=== PATIENT | female | born 1965 | race Caucasian/White ===

== ENCOUNTER 2016-03-23 12:55 | Emergency (ER) | payer BC, OTHER ==
[2016-03-23] MEDS ORDERED: Aspirin Low Dose CHEW TAB* 81 MG PO ONE (13:33)
[2016-03-23 13:44] LABS: Hematocrit 43 % (35-47); Hemoglobin 14.6 g/dl (12.0-16.0); Mean Corpuscular HGB Conc 34 g/dl (31-36); Mean Corpuscular Hemoglobin 32 pg (27-31); Mean Corpuscular Volume 94 fL (80-97); Mean Platelet Volume 10 um3 (7.4-10.4); Red Blood Count 4.62 10^6/ul (4.0-5.4); Red Cell Distribution Width 13 % (10.5-15); White Blood Count 10.8 10^3/ul (3.5-10.8)
[2016-03-23 13:48] LABS: Urine Bacteria 1+ (Absent); Urine Bilirubin Negative (Negative); Urine Glucose Negative (Negative); Urine Nitrite Negative (Negative)
[2016-03-23 14:05] LABS: Albumin 4.4 g/dL (3.2-5.2); BUN/Creatinine Ratio 12.8 (8-20); Calcium 9.9 mg/dL (8.6-10.3); EGFR African American 89.8 (>60); EGFR Non-African American 69.8 (>60); Globulin 2.6 g/dL (2-4); Magnesium 1.9 mg/dL (1.9-2.7); Potassium 3.9 mmol/L (3.5-5.0); Total Bilirubin 0.7 mg/dL (0.2-1.0)
--- NOTE | 2016-03-23 14:09 | RAD ---
HISTORY: Chest pain COMPARISONS: None VIEWS: 2: Frontal dual-energy and lateral views of the chest. FINDINGS: CARDIOMEDIASTINAL SILHOUETTE: The cardiomediastinal silhouette is normal. JOSSIE: The jossie are normal. PLEURA: The costophrenic angles are sharp. No pleural abnormalities are noted. LUNG PARENCHYMA: The lungs are clear. ABDOMEN: The upper abdomen is clear. There is no subphrenic gas. BONES AND SOFT TISSUES: No bone or soft tissue abnormalities are noted. OTHER: None. IMPRESSION: NO ACTIVE CARDIOPULMONARY DISEASE.
[2016-03-23 14:14] LABS: T4 9.13 g/dL (6.09-12.23)
[2016-03-23 14:15] LABS: TSH (Thyroid Stimulating Horm) 0.52 mcIU/mL (0.34-5.60)
[2016-03-23] MEDS ORDERED: Ketorolac INJ* 30 MG/ML 1 ML VIAL IV PUSH ONE (16:43)
--- NOTE | 2016-03-23 16:47 | ED ---
Cristian Craft Anna, scribed for Aidan Phoenix MD on 03/23/16 at 1343 . HPI Chest Pain - HPI Summary HPI Summary: Patient is a 50 y/o female coming to [facility] presenting with mid-sternal chest pain that began at 0500 this morning. She describes it as an ache with a severity of pain as 8/10. The pain radiates to her right shoulders with deep breaths. The pain is exacerbated by deep breaths and lying down. She says it feels as if there is something caught in her throat, but she has not eaten today. Denies nausea, emesis, SOB, dizziness, leg edema. - History of Current Complaint Chief Complaint: EDChestPainROMI Time Seen by Provider: 03/23/16 13:32 Hx Obtained From: Patient Onset/Duration: Started Hours Ago Timing: Constant Initial Severity: Moderate Current Severity: Moderate Pain Intensity: 8 Pain Scale Used: 0-10 Numeric - Allergy/Home Medications Allergies/Adverse Reactions: Allergies Allergy/AdvReac Type Severity Reaction Status Date / Time No Known Allergies Allergy Verified 03/23/16 13:04 Home Medications: Home Medications Lisinopril TAB* [Prinivil TAB 10 MG*] 20 mg PO DAILY 03/23/16 [History Confirmed 03/23/16] PMH/Surg Hx/FS Hx/Imm Hx Endocrine/Hematology History: Reports: Hx Thyroid Disease - hypothyroidism Denies: Hx Diabetes Cardiovascular History: Reports: Hx Hypertension - Has been on HTN medication since beginning of 2016 Respiratory History: Denies: Hx Asthma, Hx Chronic Obstructive Pulmonary Disease (COPD) GI History: Denies: Hx Ulcer - Surgical History Surgery Procedure, Year, and Place: HYSTERECTOMY 11/17. [facility] LEFT FOOT Infectious Disease History: No Infectious Disease History: Denies: Hx Hepatitis, Hx Human Immunodeficiency Virus (HIV), Traveled Outside the [place] in Last 30 Days - Family History Known Family History: Positive: Cardiac Disease - Father, uncle and Grandfather Hx AAA; Mother Hx leaky heart valve - Social History Lives: With Family Alcohol Use: Daily Alcohol Amount: 4-5 beers per day Substance Use Type: Reports: None Smoking Status (MU): Never Smoked Tobacco Review of Systems Positive: Chest Pain Negative: Shortness Of Breath Negative: Vomiting, Nausea Negative: Edema Neurological: Other - Denies dizziness All Other Systems Reviewed And Are Negative: Yes Physical Exam - Summary Physical Exam Summary: VITAL SIGNS: Reviewed. GENERAL: Patient is an overweight female who is lying comfortable in the stretcher. Patient is not in any acute respiratory distress. HEAD AND FACE: No signs of trauma. No ecchymosis, hematomas or skull depressions. No sinus tenderness. EYES: PERRLA, EOMI x 2, No injected conjunctiva, no nystagmus. EARS: Hearing grossly intact. Ear canals and tympanic membranes are within normal limits. MOUTH: Oropharynx within normal limits. NECK: Supple, trachea is midline, no adenopathy, no JVD, no carotid bruit, no c- spine tenderness, neck with full ROM. CHEST: Symmetric, no tenderness at palpation LUNGS: Clear to auscultation bilaterally. No wheezing or crackles. CVS: Regular rate and rhythm, S1 and S2 present, no murmurs or gallops appreciated. ABDOMEN: Soft, non-tender. No signs of distention. No rebound no guarding, and no masses palpated. Bowel sounds are normal. EXTREMITIES: FROM in all major joints, no edema, no cyanosis or clubbing. NEURO: Alert and oriented x 3. No acute neurological deficits. Speech is normal and follows commands. SKIN: Dry and warm Triage Information Reviewed: Yes Vital Signs On Initial Exam: Initial Vitals Temp Pulse Resp BP Pulse Ox 98 F 92 18 150/86 100 03/23/16 13:02 03/23/16 13:02 03/23/16 13:02 03/23/16 13:02 03/23/16 13:02 Vital Signs Reviewed: Yes - [place] Coma Scale Coma Scale Total: 15 Diagnostics - Vital Signs Vital Signs Temp Pulse Resp BP Pulse Ox 03/23/16 13:02 98 F 92 18 150/86 100 - Laboratory Lab Results: Lab Results 03/23/16 03/23/16 03/23/16 Range/Units 13:12 13:12 13:12 WBC 10.8 (3.5-10.8) 10^3/ul RBC 4.62 (4.0-5.4) 10^6/ul Hgb 14.6 (12.0-16.0) g/dl Hct 43 (35-47) % MCV 94 (80-97) fL MCH 32 H (27-31) pg MCHC 34 (31-36) g/dl RDW 13 (10.5-15) % Plt Count 195 (150-450) 10^3/ul MPV 10 (7.4-10.4) um3 Neut % (Auto) 72.4 (38-83) % Lymph % (Auto) 18.6 L (25-47) % [place] % (Auto) 6.1 (1-9) % Eos % (Auto) 2.4 (0-6) % Baso % (Auto) 0.5 (0-2) % Absolute Neuts (auto) 7.8 H (1.5-7.7) 10^3/ul Absolute Lymphs (auto) 2.0 (1.0-4.8) 10^3/ul Absolute Monos (auto) 0.7 (0-0.8) 10^3/ul Absolute Eos (auto) 0.3 (0-0.6) 10^3/ul Absolute Basos (auto) 0.1 (0-0.2) 10^3/ul Absolute Nucleated RBC 0.01 10^3/ul Nucleated RBC % 0 D-Dimer, Quantitative (Less Than 230) ng/mL Sodium 138 (133-145) mmol/L Potassium 3.9 (3.5-5.0) mmol/L Chloride 102 (101-111) mmol/L Carbon Dioxide 26 (22-32) mmol/L Anion Gap 10 (2-11) mmol/L BUN 11 (6-24) mg/dL Creatinine 0.86 (0.51-0.95) mg/dL Est GFR ( Amer) 89.8 (>60) Est GFR (Non-Af Amer) 69.8 (>60) BUN/Creatinine Ratio 12.8 (8-20) Glucose 110 H (70-100) mg/dL Calcium 9.9 (8.6-10.3) mg/dL Magnesium 1.9 (1.9-2.7) mg/dL Total Bilirubin 0.70 (0.2-1.0) mg/dL AST 21 (13-39) U/L ALT 28 (7-52) U/L Alkaline Phosphatase 76 (34-104) U/L Total Creatine Kinase 108 (10-223) U/L CK-MB (CK-2) 4.1 (0.6-6.3) ng/mL Myoglobin 25.8 (14.3-65.8) ng/mL Troponin I 0.00 (<0.04) ng/mL B-Natriuretic Peptide ( - 100) pg/mL Total Protein 7.0 (6.4-8.9) g/dL Albumin 4.4 (3.2-5.2) g/dL Globulin 2.6 (2-4) g/dL Albumin/Globulin Ratio 1.7 (1-3) TSH Pending Thyroxine (T4) Pending Urine Color Straw Urine Appearance Clear Urine pH 6.0 (5-9) Ur Specific [place] 1.004 L (1.010-1.030) Urine Protein Negative (Negative) Urine Ketones Negative (Negative) Urine Blood 1+ H (Negative) Urine Nitrate Negative (Negative) Urine Bilirubin Negative (Negative) Urine Urobilinogen Negative (Negative) Ur Leukocyte Esterase Negative (Negative) Urine WBC (Auto) Absent (Absent) Urine RBC (Auto) Trace(0-2/hpf) (Absent) Ur Squamous Epith Cells Present H (Absent) Urine Bacteria 1+ H (Absent) Urine Glucose Negative (Negative) 03/23/16 03/23/16 Range/Units 13:12 13:12 WBC (3.5-10.8) 10^3/ul RBC (4.0-5.4) 10^6/ul Hgb (12.0-16.0) g/dl Hct (35-47) % MCV (80-97) fL MCH (27-31) pg MCHC (31-36) g/dl RDW (10.5-15) % Plt Count (150-450) 10^3/ul MPV (7.4-10.4) um3 Neut % (Auto) (38-83) % Lymph % (Auto) (25-47) % [place] % (Auto) (1-9) % Eos % (Auto) (0-6) % Baso % (Auto) (0-2) % Absolute Neuts (auto) (1.5-7.7) 10^3/ul Absolute Lymphs (auto) (1.0-4.8) 10^3/ul Absolute Monos (auto) (0-0.8) 10^3/ul Absolute Eos (auto) (0-0.6) 10^3/ul Absolute Basos (auto) (0-0.2) 10^3/ul Absolute Nucleated RBC 10^3/ul Nucleated RBC % D-Dimer, Quantitative < 200 (Less Than 230) ng/mL Sodium (133-145) mmol/L Potassium (3.5-5.0) mmol/L Chloride (101-111) mmol/L Carbon Dioxide (22-32) mmol/L Anion Gap (2-11) mmol/L BUN (6-24) mg/dL Creatinine (0.51-0.95) mg/dL Est GFR ( Amer) (>60) Est GFR (Non-Af Amer) (>60) BUN/Creatinine Ratio (8-20) Glucose (70-100) mg/dL Calcium (8.6-10.3) mg/dL Magnesium (1.9-2.7) mg/dL Total Bilirubin (0.2-1.0) mg/dL AST (13-39) U/L ALT (7-52) U/L Alkaline Phosphatase (34-104) U/L Total Creatine Kinase (10-223) U/L CK-MB (CK-2) (0.6-6.3) ng/mL Myoglobin (14.3-65.8) ng/mL Troponin I (<0.04) ng/mL B-Natriuretic Peptide 29 ( - 100) pg/mL Total Protein (6.4-8.9) g/dL Albumin (3.2-5.2) g/dL Globulin (2-4) g/dL Albumin/Globulin Ratio (1-3) TSH Thyroxine (T4) Urine Color Urine Appearance Urine pH (5-9) Ur Specific [place] (1.010-1.030) Urine Protein (Negative) Urine Ketones (Negative) Urine Blood (Negative) Urine Nitrate (Negative) Urine Bilirubin (Negative) Urine Urobilinogen (Negative) Ur Leukocyte Esterase (Negative) Urine WBC (Auto) (Absent) Urine RBC (Auto) (Absent) Ur Squamous Epith Cells (Absent) Urine Bacteria (Absent) Urine Glucose (Negative) Result Diagrams: 03/23/16 13:12 03/23/16 13:12 Lab Statement: Any lab studies that have been ordered have been reviewed, and results considered in the medical decision making process. - Radiology CXR Xray Interpretation: No Acute Changes Radiology Interpretation Completed By: Radiologist - EKG 1255 Cardiac Rate: NL - 91 bpm EKG Rhythm: Sinus Rhythm EKG Interpretation: Q wave in [address] elevation Re-Evaluation - Re-Evaluation First Eval Re-Evaluation Time: 15:55 Change: Unchanged Comment: Discussed results and plan of care with patient. Patient is agreeable with plan. Second Eval Re-Evaluation Time: 16:42 Change: Unchanged Comment: The patient's repeat Troponin came back as 0. She will have some more Toradol for the pain before discharge. The patient understands that she should return to the ED with SOB, dizziness, increased pain, or any new or worsening symptoms. She verbalizes agreement with this plan. Chest Pain Course/Dx - Course Assessment/Plan: Patient is a 50 y/o female coming to [facility] presenting with mid- sternal chest pain that began at 0500 this morning. She describes it as an ache with a severity of pain as 8/10. The pain radiates to her right shoulders with deep breaths. The pain is exacerbated by deep breaths and lying down. She says it feels as if there is something caught in her throat, but she has not eaten today. Denies nausea, emesis, SOB, dizziness, leg edema. Blood work wnl, except for increase glucose. Troponin #1 and #2 are 0.00. D Dimer is negative therefore I have low suspicion for PE. CXR impression: No active cardiopulmonary pathology. EKG NSR w/o SELVIN. In the Ed course she was given Toradol and her symptom improved. Patient reports that all symptoms have resolved. Patient has been observed in the ER for approximately 5 hours. Because the patient has no significant comorbidities except for HTN and no family history of cardiovascular disease the patient will be discharged home with follow up of PMD. I discussed all the findings and test results with the patient. Patient was instructed to return to the emergency room immediately if any of the symptoms return or worsens. Patient understands and agrees. Plan of care was discussed with the patient and patient understands and agrees. All questions were answered at patient satisfaction. There were no further complaints or concerns. PE before discharge: CVS: S1 and S2 present. No murmurs appreciated. Abdominal exam before discharge: Soft, non-tender. No signs of distention. No rebound no guarding, and no masses palpated. Bowel sounds are normal. Patient is alert and oriented x 3. Patient is hemodynamically stable. - Chest Pain Differential Diagnosis/HQI/PQRI: Acute ME, ACS, Angina, CHF, Chest Wall, GI Disease, Lower Respiratory Infection, Pulmonary Edema, Pulmonary Embolism - Diagnoses Provider Diagnoses: Atypical chest pain Discharge - Discharge Plan Condition: Stable Disposition: HOME Patient Education Materials: Chest Pain (ED), Chest Wall Pain (ED) Referrals: Jonah Guevara MD [Primary Care Provider] - Additional Instructions: Follow up with primary care physician within 48 hours. Return to the emergency department for changing or worsening symptoms, including nausea, vomiting, diaphoresis, dizziness or shortness of breath. The documentation as recorded by the Cristian huitron Anna accurately reflects the service I personally performed and the decisions made by Alban urena Walter, MD.
[2016-03-23 17:24] VITALS: BP 128/72
== END 2016-03-23 17:22 | disposition home or self-care (01) ==
LOC: ED 12:55
DX: R07.89 Other chest pain (principal); R07.9 Chest pain, unspecified
CPT/HCPCS: 36415; 71020; 80053; 81003; 81015; 82550; 82553; 83735; 83874; 83880; 84436; 84443; 84484; 85025; 85379; 87077; 87086; 93005; 96374; 99283; A9270-GY; J1885

== ENCOUNTER 2016-12-08 09:19 | Emergency (ER) | payer BC, OTHER ==
--- NOTE | 2016-12-08 10:54 | UC ---
Respiratory Complaint HPI - HPI Summary HPI Summary: This is a 51 yo female with HTN who presented with c/o 5d of ST, cough, congestion and intermittent fevers. 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 No influenza vaccination yet this season. No CP, SOB, abd pain, n/v. - History of Current Complaint Chief Complaint: UCRespiratory Stated Complaint: COUGH FEVER RESP ISSUE Hx Last Menstrual Period: 2003 - Allergies/Home Medications Allergies/Adverse Reactions: Allergies Allergy/AdvReac Type Severity Reaction Status Date / Time No Known Allergies Allergy Verified 12/08/16 10:05 Home Medications: Home Medications Lisinopril & Hydrochlorothiazi [Zestoretic 20-12.5 mg-] 12/08/16 [History] PMH/Surg Hx/FS Hx/Imm Hx Endocrine History: Thyroid Disease Cardiovascular History: Hypertension - Surgical History Surgical History: Yes Surgery Procedure, Year, and Place: HYSTERECTOMY 11/17. [facility] LEFT FOOT - Family History Known Family History: Positive: Cardiac Disease - Father, uncle and Grandfather Hx AAA; Mother Hx leaky heart valve - Social History Alcohol Use: Daily Alcohol Amount: 4-5 beers per day Substance Use Type: None Smoking Status (MU): Never Smoked Tobacco Review of Systems Constitutional: Fever, Fatigue Skin: Negative Eyes: Negative ENT: Sore Throat, Nasal Discharge, Sinus Congestion Respiratory: Cough Cardiovascular: Negative Gastrointestinal: Negative Genitourinary: Negative Motor: Negative Neurovascular: Negative Musculoskeletal: Negative Neurological: Negative Psychological: Negative Is Patient Immunocompromised?: No All Other Systems Reviewed And Are Negative: Yes Physical Exam Triage Information Reviewed: Yes Appearance: Well-Appearing Vital Signs: Initial Vital Signs Temp 98.6 F 12/08/16 10:06 Pulse 112 12/08/16 10:06 Resp 16 12/08/16 10:06 BP 121/81 12/08/16 10:06 Pulse Ox 98 12/08/16 10:06 Vital Signs Reviewed: Yes ENT: Positive: TM dull - R is is a slightly retracted with faint erythema Neck: Positive: Supple, Nontender Respiratory: Positive: Chest non-tender, Lungs clear, Normal breath sounds. Negative: Crackles, Rhonchi, Wheezing Cardiovascular: Positive: RRR, No Murmur Musculoskeletal Exam: Normal Musculoskeletal: Positive: Strength Intact Neurological: Positive: Alert Psychological Exam: Normal Psychological: Positive: Normal Response To Family Skin Exam: Normal Skin: Positive: rashes UC Diagnostic Evaluation - Laboratory O2 Sat by Pulse Oximetry: 98 Diagnostic Studies Comment: Rapid influenza - neg Respiratory Course/Dx - Course Course Of Treatment: This is a 51 yo female with c/o ST, cough, congestion and fever x 5d. Exam benign. Influenza testing neg. Treat for URI with decongestants. - Differential Dx/Diagnosis Differential Diagnosis/HQI/PQRI: Bronchitis, Influenza, Laryngitis Provider Diagnoses: 1. Upper respiratory infection Discharge - Discharge Plan Condition: Stable Disposition: HOME Patient Education Materials: Upper Respiratory Infection (ED) Forms: *Work Release Referrals: Jonah Guevara MD [Primary Care Provider] - If Needed Additional Instructions: Instructions: 1. To help with congestion relief use Sudafed as directed on the box during the day and Benadryl at night. Throat lozenges can also be helpful 2. Treat the fever with tylenol and/or ibuprofen
[2016-12-08 11:23] VITALS: BP 144/97
== END 2016-12-08 11:23 | disposition home or self-care (01) ==
LOC: UCEAST 09:19
DX: J06.9 Acute upper respiratory infection, unspecified (principal); I10 Essential (primary) hypertension; E07.9 Disorder of thyroid, unspecified
CPT/HCPCS: 87502; 99211; G0463

== ENCOUNTER 2017-09-01 07:30 | Observation (INO) | payer BC ==
[2017-09-21] MEDS ORDERED: Buffered Lidocaine 0.9% SYRIN* 5 ML/SYR SYRINGE INTRADERM ONE (14:50)
--- OUTSIDE RECORDS SUMMARY | 2017-09-22 06:14 | XMS REPORT ---
:1965 External Reference #:[id number] Author Organization [facility] Address [address] [place] [address] [place] [address] Phone [phone] Care Team Providers Name Role Phone Jonah Guevara MD Primary Care Physician Unavailable Payers Type Date Identification Numbers Payment Provider Subscriber Commercial Effective: Policy Number: [id number] [employer] Shashank Velazco 2016 PayID: [id number] [address] [address] [place] [address] Problems Date Description Provider Status Onset: 05/27/2017 Neck pain Ada Ceja MD Active Onset: 05/27/2017 Cervical spondylosis Ada Ceja MD Active Onset: 05/27/2017 Cervical disc disorder Ada Ceja MD Active Onset: 06/07/2017 Spondylolisthesis Ada Ceja MD Active Family History Date Family Member(s) Problem(s) Comments Father due to Abdominal Aneurysm () Mother Heart Disease Mother Scoliosis Siblings 2 Social History Type Date Description Comments Marital Status Lives With Occupation Currently Working Occupation Teacher tax prep ETOH Use consumes 4-5 beers per day Smoking Patient has never smoked Recreational Drug Use Denies Drug Use Daily Caffeine Consumes on average 1 cup of regular coffee per day Exercise Type/Frequency Exercises regularly Allergies, Adverse Reactions, Alerts Date Description Reaction Status Severity Comments 05/27/2017 NKDA active Medications Medication Date Status Form Strength Qnty SIG Indications Ordering Provider Lisinopril-[place] Active Tablets 20-12.5mg Take One Unknown chlorothiazide 000 Tablet By Mouth Every Day Naproxen DR Active Tablets DR 500mg Take One Unknown 000 Tablet By Mouth Twice A Day as Needed For Knee Pain Fluconazole Active Tablets 150mg Take 1 Unknown 000 Tablet By Mouth Once Levothyroxine Active Tablets 175mcg 1 by Unknown Sodium 000 mouth every day Lansoprazole Active Capsules 30mg [address] mouth every day Tylenol Extra Active Tablets 500mg 2 by Unknown Strength 000 mouth bid Vital Signs Date Vital Result Comment 06/07/2017 Height 66 inches 5'6" Weight 210.00 lb BP Systolic Sitting 130 mmHg BP Diastolic Sitting 70 mmHg Pain Level 7 BMI (Body Mass Index) 33.9 kg/m2 05/27/2017 Height 66 inches 5'6" Weight 210.00 lb BP Systolic Sitting 128 mmHg BP Diastolic Sitting 80 mmHg Pain Level 8 BMI (Body Mass Index) 33.9 kg/m2 Results Description No Information Procedures Description No Information Encounters Type Date Location Provider CPT E/M Dx Office Visit 06/07/2017 [facility] [address] M47.892 2:00p Of Delores Ceja MD M50.122 M50.123 M43.12 M48.02 Office Visit 05/27/2017 2:30p [facility] [address] M47.892 Of Delores Ceja MD M50.122 M50.123 Plan of Care 06/07/2017 - [place] Ceja, MDM47.892 Other spondylosis, cervical xipiecC31.122 Cervical disc disorder at C5-C6 level with radiculopathyFollow up: RV 1 week hrslzhI17.123 Cervical disc disorder at C6-C7 level with wsiybjiivylimT72.12 Spondylolisthesis, cervical ohaqicX61.02 Spinal stenosis, cervical region
[2017-09-22] MEDS ORDERED: ceFAZolin 2 GM PREMIX (*) 2 GM/50 ML BAG IVPB ONE ×2 (06:15→11:52)
[2017-09-22] MEDS ORDERED: Propofol* 10 MG/ML 20 ML BTL IV PUSH ONE (06:47)
[2017-09-22] MEDS ORDERED: Sodium Bicarbonate 8.4% IV* 50 ML VIAL ONE (06:51)
[2017-09-22] MEDS ORDERED: Lidocaine 2% PF * 5 ML VIAL ONE (06:51)
[2017-09-22] MEDS ORDERED: Sterile Water for Inj* 10 ML ONE (06:52)
[2017-09-22] MEDS ORDERED: Rocuronium* 10 MG/ML VIAL ONE ×3 (06:57→10:10)
[2017-09-22] MEDS ORDERED: fentaNYL* 50 MCG/ML 2 ML VIAL (100 MCG VIAL) ONE (06:58)
[2017-09-22] MEDS ORDERED: Midazolam* 1 MG/ML 2 ML VIAL (2 MG) ONE (06:58)
[2017-09-22] MEDS ORDERED: Bacitracin IV* 50,000 UNITS INJ ONE (07:08)
[2017-09-22] MEDS ORDERED: Thrombin 5,000 UNITS* 1 APPLIC KIT - topical use - TOPICAL ONE (07:08)
[2017-09-22] MEDS ORDERED: Lidocain 1% EPI 1:100,000 * 30 ML MDV ONE (07:08)
[2017-09-22] MEDS ORDERED: Scopolamine 1.5 mg* PATCH ONE (07:23)
[2017-09-22] MEDS ORDERED: KETAMINE HCL* 50 MG/ML 10 ML VIAL ONE (07:23)
[2017-09-22] MEDS ORDERED: Gabapentin CAP(*) 300 MG ONE (07:28)
[2017-09-22] MEDS ORDERED: Phenylephrine INJ* 10 MG/ML 1 ML VIAL (10 MG) ONE ×2 (08:41→09:21)
[2017-09-22] MEDS ORDERED: VASOPRESSIN 20 UNITS/ML 1 ML VIAL ONE (08:50)
[2017-09-22] MEDS ORDERED: EPHEDrine (Pressors)* 50 MG/ML VIAL ONE (08:52)
[2017-09-22] MEDS ORDERED: Ketorolac INJ* 30 MG/ML 1 ML VIAL ONE (11:09)
[2017-09-22] MEDS ORDERED: Ondansetron INJ* 2 MG/ML VIAL ONE (11:09)
[2017-09-22] MEDS ORDERED: Dexamethasone IV* 4 MG/ML 1 ML (4 MG) ONE ×2 (11:09→11:11)
[2017-09-22] MEDS ORDERED: Metoclopramide IV* 5 MG/ML 2 ML VIAL ONE (11:09)
[2017-09-22] MEDS ORDERED: HYDROmorphone INJ* 0.5 MG/0.5 ML SYRINGE ONE (12:21)
[2017-09-22] MEDS ORDERED: Glycopyrrolate IV* 0.2 MG/ML 1 ML VIAL ONE (12:26)
[2017-09-22] MEDS ORDERED: Neostigmine Methylsulfate* 1 MG/ML 10 ML VIAL (1 mg/ml) ONE (12:26)
[2017-09-22] MEDS ORDERED: Ondansetron INJ* 2 MG/ML VIAL IV PRN (13:06)
[2017-09-22] MEDS ORDERED: Magnesium Hydroxide LIQ* 30 ML UDC PO PRN (13:06)
[2017-09-22] MEDS ORDERED: Omeprazole CAP* 20 MG PO PRN (13:20)
[2017-09-22] MEDS ORDERED: DiMENhydriNATE IV* 50 MG/ML VIAL IV PUSH PRN (13:24)
[2017-09-22] MEDS ORDERED: HYDROmorphone INJ* 0.5 MG/0.5 ML SYRINGE IV PRN (13:24)
[2017-09-22] MEDS ORDERED: Naloxone* 0.4 MG/ML 1 ML VIAL IV PRN (13:24)
[2017-09-22] MEDS ORDERED: Acetaminophen IV 1GM/100ML * 1,000 MG/100 ML VIAL IVPB ONE (13:24)
--- NOTE | 2017-09-22 14:19 | RAD ---
INDICATION: Anterior cervical discectomy and fusion. COMPARISON: May 20, 2017 MRI. TECHNIQUE: 58 seconds fluoroscopy. FINDINGS: Spot images document C4-C5, C5-C6, and C6-C7 anterior cervical spinal fusion. IMPRESSION: Interoperative control films. CPT II Codes: G9500
[2017-09-22] MEDS: HYDROcodone/ACETAMIN 5-325 MG* 1 TAB PO PRN (19:52)
[2017-09-23] MEDS ORDERED: Levothyroxine TAB* 175 MCG TAB PO SCH (06:00)
[2017-09-23 07:48] VITALS: BP 125/71
[2017-09-23] MEDS ORDERED: Lisinopril TAB* 10 MG PO SCH (09:00)
[2017-09-23] MEDS ORDERED: Hydrochlorothiazide TAB* 25 MG PO SCH (09:00)
--- NOTE | 2017-09-23 09:50 | RAD ---
Indication: Postop fusion of the cervical spine. 3 views of the cervical spine demonstrates anterior fusion with anterior plate and screws and intervertebral disc spaces from C4 through C7. Alignment appears satisfactory. IMPRESSION: Anterior fusion of C4-C7 in satisfactory position.
--- NOTE | 2017-09-23 11:25 | PN ---
Progress Note - Progress Note Date of Service: 09/23/17 SOAP: Subjective: []No events ON. Patient tolerated the procedure well yesterday. Ambulates, Tolerates PO well, Voids. Preop LUE tingling has resolved. Patient wants to go home. No difficulties with swalowing, speech. Objective: []VSS Afebrile. Wound soft, clean, dry. CELI output noted. CELI was removed. Catheter appeared to be intact. Patient tolerated procedure well. AAOx3 , MELITA, CN II-XII grossly intact Motor 5/5 all extremities Sensory grossly intact to light touch. Assessment: []51 yof POD#1 ACDF C4-7, C5 partial corpectomy Plan: []XR revealed good placement of hardware good alignment of spine DC planning Full instructions were given Apurva Ceja MD
[2017-09-23] MEDS: HYDROcodone/ACETAMIN 5-325 MG* 1 TAB PO PRN (12:30)
--- NOTE | 2017-09-23 22:43 | OP ---
OPERATIVE REPORT: DATE OF OPERATION: 09/22/17 - Inpatient, room [facility]01 DATE OF : 65 SURGEON: Ada Ceja MD IT BUSINESS ANALYST: STEFANO Arreola The case was done with the assistance of a PA because of the complexity of the case. ANESTHESIOLOGIST: Carla Castro DO ANESTHESIA: General. PRE-OP DIAGNOSES: 1. Cervical kyphosis. 2. Degenerative disease. POST-OP DIAGNOSES: 1. Cervical kyphosis. 2. Degenerative disease. OPERATIVE PROCEDURE: The patient underwent anterior cervical diskectomy and fusion C4-5, C5-6, and C6-7 with extensive foraminotomies, partial corpectomy of C5, and partial anterior osteotomy of C6-7 with PEEK interbody cages, autologous local bone graft and DBX and anterior Titanium plate. ESTIMATED BLOOD LOSS: 75 cc. COMPLICATIONS: None. SUMMARY: The patient is very pleasant 51-year-old female with complaints of neck pain radiating to the left upper extremity in a patient with imaging findings consistent with cervical kyphosis and degenerative disk disease with neuroforaminal stenosis and spondylolisthesis at C4-5. After failing conservative treatment modalities, he was offered the option of surgical intervention in the form of multilevel anterior cervical diskectomy and fusion with the possibility of further surgical intervention in the future. After explaining expectation, limitations, and possible complications of the procedure to the patient and her with complications including, but not limited to, bleeding, infection, risk of injury to adjacent structures, coma, paralysis, , need for additional procedures, anesthesia risk, stroke, blindness, cancer, instability, hardware failure, adjacent level disease, pseudoarthrosis, spinal fluid leak, recurrent laryngeal nerve injury, Shasha's syndrome, need for tracheostomy or gastrostomy, anesthesia risk, the patient was agreeable to proceed with surgery. Informed consent was obtained. She understood that her condition may not improve, in fact may get worse after the surgery and she may need to have additional procedure in the future. She also understood that operative plan will be modified according to the intraoperative findings and conditions and the case may be done in more than one stages. DESCRIPTION OF PROCEDURE: The patient was brought to the operating room and was placed under general anesthesia by the anesthesia team. She was carefully positioned supine on regular table and all bony prominences were meticulously padded and her neck was slightly extended and her skin was prepped and draped in the standard fashion. A small right side transverse incision was marked on the skin with the assistance of intraoperative fluoroscopic imaging and after infiltrating the skin with local anesthetic, a #10 surgical blade was used to incise the skin. The incision was carried down with Bovie cautery and the skin was elevated and retracted with self-retaining retractors. The platysma was identified and was gently divided with Metzenbaum scissors and it was carefully undermined. The medial border of the sternocleidomastoid was identified and the plane between the medial border of the sternocleidomastoid and the medial structures was gently developed with use of sharp and blunt dissection. The anterior part of the spine was identified and intraoperative fluoroscopic image confirmed appropriate surgical levels. After exposing the anterior spine and placing self-retaining retractors and Nallen pin retractors at C 4, 5 a diskectomy was performed as well as superior partial corpectomy of C5 with use of Leksell rongeurs, Kerrison punches, and high-speed drill and curettes after incising the annulus fibrosus with #15 surgical blade. A 8 mm and 6 degrees of lordosis PEEK Medtronic interbody spacer was implanted after being filled with locally harvested bone graft and DBX . The procedure was repeated for the C5-6 level with partial corpectomy of the inferior part of the C5 level. Extensive foraminotomies were performed and 9 mm interbody PEEK cage was also implanted after being filled with locally harvested bone graft and DBX. After repositioning of the retractors over the C6-7 disk space, C6-7 diskectomy was performed with superior part of partial corpectomy of C7 as well as partial anterior osteotomy in order to facilitate adequate decompression of the thecal sac and the exiting nerve roots as well as assist with the correction of the patient's kyphosis. An 11 mm PEEK interbody cage was implanted after being filled with locally harvested bone graft and DBX . Nallen pins were removed. A 55 mm Zevo Medtronic plate was then placed and secured in place with 10 mm screws. Intraoperative fluoroscopic imaging confirmed excellent placement of all hardware. Then, self retaining retractors were remved and after meticulous hemostasis and copious irrigation, the wound was closed by layers after placement of #7 CELI drain, which was done through a separate stab wound incision. The platysma was approximated with 2-0 Vicryl sutures while the subcutaneous tissue was approximated with 2-0 interrupted Vicryl sutures and the skin was covered with Dermabond and sterile sponges. At the end of the procedure, all counts were reported to be correct. The patient remained hemodynamically stable throughout the case. She was then extubated and was transferred to Recovery in excellent condition. The case was done with the assistance of the surgical PA because of the complexity of the case. [id number]/[facility] #: [id number] KRISTIN
== END 2017-09-23 12:40 | disposition home or self-care (01) ==
LOC: AA 09-22 06:09 → INTOOBSV 09-22 06:09 → SSU 09-22 13:06
PROVIDERS: ADMIT Neurological Surgery; ATTEND Neurological Surgery
DX: M40.202 Unspecified kyphosis, cervical region (principal); M50.321 Other cervical disc degeneration at C4-C5 level; M50.322 Other cervical disc degeneration at C5-C6 level; M50.323 Other cervical disc degeneration at C6-C7 level
CPT/HCPCS: 72040; 76001; 96374; A9270-GY; C1713; C1776; C9359; G0378; J0690; J1100; J1170; J1885; J2250; J2405; J2704; J2710; J2765; J3010